=== PATIENT | male | born 1945 | race Caucasian/White ===

== ENCOUNTER 2020-11-25 06:05 | Inpatient (IN) | payer MEDICARE ==
[2020-11-24 13:21] VITALS: BMI 23.0
[2020-11-26 11:43] VITALS: BP 103/62; TEMP 98.6
== END 2020-11-26 11:55 | disposition home or self-care (01) | DRG 272 ==
LOC: EDSTATUS 06:05 → SURG A 06:06 → SJJU 11:19
PROVIDERS: ADMIT Thoracic Surgery (Cardiothoracic Vascular Surgery); ATTEND Thoracic Surgery (Cardiothoracic Vascular Surgery)
PROC: 0W9D0ZZ Drainage of Pericardial Cavity, Open Approach (ICD-10-PCS; principal; 2020-11-25)
DX: I31.3 Pericardial effusion (noninflammatory) (principal); I10 Essential (primary) hypertension; F41.9 Anxiety disorder, unspecified; Z79.899 Other long term (current) drug therapy; Z88.0 Allergy status to penicillin
CPT/HCPCS: 80048; 82150; 84157; 85027; 85060; 87070; 87102; 87205; 87206; 88112; 88305; 89051; J0171; J1100; J1200; J1642; J2405; J3010; J3490; S0020